=== PATIENT | male | born 1990 | race African-American/Black ===

== ENCOUNTER 2023-03-05 07:55 | Emergency (ER) | payer MEDICAID ==
[~2023-03-05] VITALS: Ht 182.9 cm; Wt 100.0 kg
[2023-03-05 07:59] VITALS: O2SAT 99
[2023-03-05] MEDS ORDERED: FAMOTIDINE 20MG TABLET PO ONE (08:15)
[2023-03-05] MEDS ORDERED: ONDANSETRON 4MG ODT PO ONE (08:15)
[2023-03-05 08:28] LABS: HEMATOCRIT. 50.2 % (42.0-52.0); HEMOGLOBIN. 17.3 g/dL (14.0-18.0); MEAN CORPUSCULAR HGB CONC 34.4 g/dL (31.0-37.0); MEAN PLATELET VOLUME 8.4 fl (7.4-10.4); PLATELET 276 x1000/uL (130-400); RED BLOOD CELL COUNT 5.77 mill/uL (4.7-6.1); RED CELL DISTRIBUTION WIDTH 13.7 % (11.6-14.6); WHITE BLOOD COUNT 12.6 x1000/uL (4.5-11.0)
[2023-03-05] MEDS ORDERED: DICYCLOMINE HCL 10MG/ML 2ML VIAL IM ONE (08:30)
[2023-03-05 08:37] LABS: DIFFERENTIAL COMMENT 1
[2023-03-05 08:55] LABS: ALANINE AMINOTRANSFERASE 24 IU/L (10-49); ALBUMIN 4.9 g/dL (3.2-4.8); ASPARTATE AMINOTRANSFERASE 25 IU/L (<34); BILIRUBIN TOTAL 1.1 mg/dL (0.1-1.0); CALCIUM 10.1 mg/dL (8.7-10.4); CARBON DIOXIDE 25 mEq/L (21-32); CHLORIDE 105 mEq/L (98-107); CREATININE 1.1 mg/dL (0.6-1.3); GLUCOSE 144 mg/dL (70-105); PROTEIN TOTAL 8.3 g/dL (6.0-8.3); SODIUM 140 mEq/L (136-145); UREA NITROGEN BLOOD 12 mg/dL (9-23)
[2023-03-05 09:26] LABS: CLARITY URINE TURBID (CLEAR); COLOR URINE DARK YELLOW (YELLOW); GLUCOSE URINE NEGATIVE (NEGATIVE); KETONES URINE 1+ (NEGATIVE); LEUKOCYTE ESTERASE URINE NEGATIVE (NEGATIVE); NITRITE URINE NEGATIVE (NEGATIVE); OCCULT BLOOD URINE NEGATIVE (NEGATIVE); PH URINE 5.5 (4.5-8.0); PROTEIN URINE 1+ (NEGATIVE); SPECIFIC GRAVITY URINE 1.032 (1.005-1.030); UROBILINOGEN URINE 0.2 E.U./dL (0.2-1.0)
[2023-03-05 09:44] LABS: AMORPHOUS SEDIMENT URINE 2+ /lpf
[2023-03-05 09:45] LABS: BACTERIA URINE 1+; SQUAMOUS EPITHELIAL CELL URINE RARE /lpf (RARE/1+)
[2023-03-05 09:46] LABS: RBC URINE NONE SEEN /hpf (0-2); WBC URINE 0-2 /hpf (0-2)
[2023-03-05] MEDS ORDERED: ONDA4TAB11 PO (10:25)
[2023-03-05] MEDS ORDERED: FAMO-135 MT (10:25)
[2023-03-05 10:32] VITALS: BP 118/80; PULSE 80; RESP 18; TEMP 98.2
[2023-03-05 13:28] LABS: PLATELET ESTIMATE NORMAL
== END 2023-03-05 10:34 | disposition home or self-care (01) ==
LOC: ER 07:55
DX: K52.9 Noninfective gastroenteritis and colitis, unspecified (principal); Z20.822 Contact with and (suspected) exposure to COVID-19
CPT/HCPCS: 80053; 81003; 83690; 85025; 36415; 93005; 96372; 99284; Q0162; J0500; Z7610